=== PATIENT | female | born 1990 | race African-American/Black ===

== ENCOUNTER 2016-08-09 12:02 | Emergency (ER) | payer MEDICAID, OTHER, SELFPAY ==
[~2016-08-09] VITALS: Ht 175.3 cm; Wt 70.8 kg
[2016-08-09] MEDS ORDERED: MACR100C3 PO (13:30)
[2016-08-09] MEDS ORDERED: PYRI200T5 PO (13:30)
[2016-08-09 13:31] VITALS: BP 125/76
== END 2016-08-09 13:44 | disposition home or self-care (01) ==
LOC: M ED 12:58
DX: N39.0 Urinary tract infection, site not specified (principal)

== ENCOUNTER 2017-10-16 13:12 | Emergency (ER) | payer MEDICAID, OTHER, SELFPAY ==
[2017-10-16] MEDS: KETOROLAC TROMETHAMINE 10 MG TAB PO (13:47)
== END 2017-10-16 14:01 | disposition home or self-care (01) ==
LOC: M ED 13:12
DX: J01.00 Acute maxillary sinusitis, unspecified (principal); J01.90 Acute sinusitis, unspecified; J30.2 Other seasonal allergic rhinitis; Z79.899 Other long term (current) drug therapy; Z88.0 Allergy status to penicillin
CPT/HCPCS: 99282

== ENCOUNTER 2018-07-06 14:40 | Emergency (ER) | payer MEDICAID ==
[~2018-07-06] VITALS: Ht 175.3 cm; Wt 79.4 kg
[~2018-07-06 14:40] MED LIST: CLAR1TAB2 PO; FLON1SPR NARES; GENT3OPD OS; MACR100C43 PO; NAPR-50 PO; PYRI1TAB5 PO; ZITHTAB PO
[2018-07-06 16:05] LABS: INFLUENZA A AMPLIFICATION NEGATIVE (NEGATIVE); INFLUENZA B AMPLIFICATION NEGATIVE (NEGATIVE)
[2018-07-06] MEDS ORDERED: MUCI600T37 PO (16:28)
[2018-07-06] MEDS ORDERED: AFRI0.0511 (16:28)
[2018-07-06] MEDS ORDERED: IBUP-1022 PO (16:28)
[2018-07-06 16:36] VITALS: BP 117/68
[2018-07-09] MEDS ORDERED: AZIT500T2 PO (14:07)
== END 2018-07-06 16:52 | disposition home or self-care (01) ==
LOC: M ED 14:40
DX: J06.9 Acute upper respiratory infection, unspecified (principal); Z88.0 Allergy status to penicillin

== ENCOUNTER 2018-09-19 02:26 | Emergency (ER) | payer MEDICAID, OTHER ==
[~2018-09-19] VITALS: Ht 175.3 cm; Wt 76.8 kg
[~2018-09-19 02:26] MED LIST changes: +AFRI0.0511; +AZIT500T2 PO; +GENT0.3S36 OS; -GENT3OPD OS; +IBUP-1022 PO; +MUCI600T37 PO; -NAPR-50 PO; +NAPR-837 PO
[2018-09-19 03:04] LABS: APPEARANCE, URINE CLOUDY (CLEAR); BACTERIA, URINE AUTO NEGATIVE (NEGATIVE); BILIRUBIN, URINE AUTO NEGATIVE (NEGATIVE); BLOOD, URINE BLOOD NEGATIVE (NEGATIVE); COLOR, URINE YELLOW (YELLOW); GLUCOSE, URINE (UA) AUTO NEGATIVE (NEGATIVE); KETONE, URINE AUTO NEGATIVE (NEGATIVE); LEUKOCYTE ESTERASE, URINE AUTO 1+ (NEGATIVE); MUCUS, URINE SMALL (NEGATIVE); NITRITE, URINE AUTO NEGATIVE (NEGATIVE); PROTEIN, URINE AUTO NEGATIVE (NEGATIVE); RBC, URINE AUTO 1 /HPF (0-3); SPECIFIC GRAVITY URINE AUTO 1.028 (1.002-1.035); SQUAMOUS EPITHELIAL CELL UR AU 17 /HPF (0-6); WBC, URINE AUTO 2 /HPF (0-3)
[2018-09-19 04:27] LABS: CHLAMYDIA DNA AMPLIFICATION NEGATIVE (NEGATIVE); GC DNA AMPLIFICATION NEGATIVE (NEGATIVE)
[2018-09-19] MEDS ORDERED: PYRI1TAB5 PO (04:36)
[2018-09-19 04:52] VITALS: BP 124/65
== END 2018-09-19 04:55 | disposition home or self-care (01) ==
LOC: M ED 02:26
DX: N30.90 Cystitis, unspecified without hematuria (principal); Z88.0 Allergy status to penicillin

== ENCOUNTER 2019-03-15 13:42 | Emergency (ER) | payer OTHER ==
[~2019-03-15] VITALS: Ht 175.3 cm; Wt 89.2 kg
[2019-03-15 13:42] VITALS: BP 150/71
[~2019-03-15 13:42] MED LIST changes: -AZIT500T2 PO; +AZIT500T5 PO
--- NOTE | 2019-03-15 14:27 | REP ---
HISTORY: Pain after trauma. FINDINGS: The joint spaces are symmetric and relatively well maintained. There is no evidence of acute fracture or destructive osseous lesion. IMPRESSION: Negative. Electronically Signed by Ritesh Polanco DO 03/15/2019 02:48 P
== END 2019-03-15 14:55 | disposition home or self-care (01) ==
LOC: M ED 13:42
DX: S90.111A Contusion of right great toe without damage to nail, initial encounter (principal); X58.XXXA Exposure to other specified factors, initial encounter; Y92.009 Unspecified place in unspecified non-institutional (private) residence as the place of occurrence of the external cause; Y93.89 Activity, other specified; Y99.8 Other external cause status; Z88.0 Allergy status to penicillin